=== PATIENT | male | born 2000 | race Caucasian/White ===

== ENCOUNTER 2020-03-28 01:19 | Emergency (ER) | payer BC, MEDICAID ==
[2020-03-28 01:44] VITALS: TEMP 98.8
[2020-03-28] MEDS ORDERED: DEXAMETHASONE 4 MG TAB PO ONE (02:19)
--- NOTE | 2020-03-28 02:21 | ED.PDOC ---
History of Present Illness - General Chief Complaint: ENT Problem Stated Complaint: Runny nose yesterday, sore throat tonight Time Seen by Provider: 03/28/20 02:07 - History of Present Illness Initial Comments: 19-year-old male positive past medical history of Jak Stanford tooth presents to ED complaining of 2 days nasal congestion then progressed to a sore throat with associated chills no fever. Patient denies any known recent sick contacts. He denies any associated chest pain, shortness of breath, cough, body aches, nausea/vomiting, fever. Denies alleviating/aggravating factors. Patient is otherwise healthy with no other signs, symptoms, complaints. Allergies/Adverse Reactions: Allergies NO KNOWN ALLERGY Allergy (Verified 03/28/20 01:41) Home Medications: Ambulatory Orders Amoxicillin 875 mg PO BID #20 tab 03/28/20 Review of Systems - Review of Systems Constitutional: States: chills. Denies: fever EENTM: States: nose congestion, throat pain Respiratory: Denies: cough, short of breath Cardiology: Denies: chest pain Gastrointestinal/Abdominal: Denies: abdominal pain, diarrhea, nausea, vomiting Musculoskeletal: Denies: muscle pain, neck pain Skin: Denies: change in color, rash Neurological: Denies: headache Past Medical History (General) - Patient Medical History Hx Seizures: No Hx Stroke: No Hx Dementia: No Hx Asthma: No Hx of COPD: No Hx Cardiac Disorders: No Hx Congestive Heart Failure: No Hx Pacemaker: No Hx Hypertension: No Hx Thyroid Disease: No Hx Diabetes: No Hx Gastroesophageal Reflux: No Hx Renal Disease: No Hx Cancer: No Hx of HIV: No Hx Hepatitis C: No Hx MRSA: No Surgical History: no surgical history - Vaccination History Hx Tetanus, Diphtheria Vaccination: No Hx Influenza Vaccination: No - Social History Hx Chewing Tobacco Use: Yes Hx Alcohol Use: No Family Medical History - Family History Mother Living Status: Still Living Physical Exam - Physical Exam General Appearance: Alert, Comfortable, No apparent distress Eye Exam: bilateral normal Ears, Nose, Throat: other - posterior oropharyngeal erythema, tonsils 2+ without exudate, no concern for ENV[employer]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 no stridor Neck: non-tender, full range of motion, supple, normal inspection Respiratory: lungs clear, normal breath sounds, no respiratory distress, no accessory muscle use Cardiovascular/Chest: normal peripheral pulses, regular rate, rhythm, no JVD, no murmur Gastrointestinal/Abdominal: normal bowel sounds, non tender, soft Neurologic: alert, normal mood/affect, oriented x 3 Skin Exam: normal color, warm/dry, other - no rash Progress - Progress Progress: Nicanor Hartley DO Emergency Medicine Physician [id number] Appropriate PPE of surgical mask, gown, gloves, and eye protection (if encounter >5 minutes) utilized with every patient encounter; in accordance with hospital policy. Presents for likely strep pharyngitis. Low clinical concern for COVID19. I will perform labs provide appropriate pharmacotherapy, and continue to monitor/reassess. Dispo will depend on lab results and overall course in ED; however, discharge home is expected with f/u, education, and possible rx. Rechecked pt. IJEOMA, VSS. I have discussed radiology results, lab results, my clinical impression, and diagnosis. I have also discussed plan for discharge home with f/u, education, and prescription medications. ED return precautions provided. Pt voices understanding, agrees with plan, and all questions answered. - Results/Orders Results/Orders: Laboratory Results - last 24 hr 03/28/20 01:30 Group A Strep Rapid Positive H COVID19 test resulted negative. Vital Signs - 24 hr 03/28/20 01:27 Temperature 98.8 F Pulse Rate [ 82 monitor] Respiratory 20 Rate Blood Pressure 117/75 [Left Arm] O2 Sat by Pulse 99 Oximetry Departure - Departure Clinical Impression: Strep pharyngitis Time of Disposition: 02:18 Disposition: Discharge to Home or Self Care Condition: Excellent Departure Forms: ED Discharge - Pt. Copy, Patient Portal Self Enrollment Instructions: DI for Ear Pain-Adult, Sore Throat in Adults Diet: resume usual diet Activity: increase activity as tolerated Referrals: ERIKA HARRINGTON MD [Active Staff] - 1-2 Weeks Prescriptions: Amoxicillin 875 mg PO BID #20 tab Home Medications: Ambulatory Orders Amoxicillin 875 mg PO BID #20 tab 03/28/20
[2020-03-28 02:30] VITALS: BP 111/65; O2SAT 98
== END 2020-03-28 02:30 | disposition home or self-care (01) ==
LOC: ER 01:19
DX: J02.0 Streptococcal pharyngitis (principal); Z20.822 Contact with and (suspected) exposure to COVID-19
CPT/HCPCS: 87635; 87880; J8540